=== PATIENT | female | born 1945 | race Two or more races ===

== ENCOUNTER 2021-07-25 16:58 | Inpatient (IN) | payer MEDICAID, OTHER, SELFPAY ==
[~2021-07-25] VITALS: Ht 142.2 cm; Wt 75.1 kg
[2021-07-25 22:51] LABS: Basophils # (auto) 0 10 ^3/uL (0-0.2); Basophils % (auto) 0.2 % (0.0-2.0); Eosinophils # (auto) 0 10 ^3/uL (0-0.8); Hematocrit 42.6 % (36.0-46.0); Hemoglobin 14.2 g/dL (12.2-16.2); Lymphocytes # (auto) 1.5 10 ^3/uL (0.4-5.4); Lymphocytes % (auto) 26.8 % (10.0-50.0); Mean Corpuscular Hemoglobin 29.9 pg (28.0-32.0); Mean Corpuscular Hgb Conc. 33.3 g/dL (32.0-36.0); Mean Corpuscular Volume 89.8 fL (80.0-100.0); Monocytes # (auto) 0.6 10 ^3/uL (0-1.3); Monocytes % (auto) 10.6 % (0.0-12.0); Neutrophils # (auto) 3.4 10 ^3/uL (1.6-8.6); Neutrophils % (auto) 62.4 % (37.0-80.0); Nucleated Red Blood Cells % 0.1 %; Red Blood Cells 4.75 10^6/uL (4.0-5.20); Red Cell Distribution Width 13.8 % (11.8-14.3); White Blood Cell 5.5 10^3/uL (4.4-10.8)
[2021-07-25 23:10] LABS: Albumin 3.6 g/dL (3.4-5.0); Calcium 8.5 mg/dL (8.5-10.1); Potassium 3.9 mmol/L (3.5-5.1)
[2021-07-25 23:16] LABS: BUN/Creatinine Ratio 22.1; Bilirubin, Total 0.4 mg/dL (0.2-1.0)
[2021-07-26] MEDS ORDERED: DOCUSATE SOD 100 MG CAP PO PRN (02:30)
[2021-07-26] MEDS ORDERED: HYDROcodone-ACET 5/325MG TAB PO PRN (02:30)
[2021-07-26] MEDS ORDERED: MORPHINE SULFATE INJECTION 2 MG/ML SYRG IV PRN (03:00)
[2021-07-26] MEDS ORDERED: NITROGLYCERIN 0.4 MG SL TAB SL PRN (03:00)
[2021-07-26] MEDS: ZINC SULFATE 220mg CAP or TAB PO SCH (10:56)
[2021-07-26] MEDS: FAMOTIDINE (10MG/ML) 2ML VL IV SCH (10:56)
[2021-07-26] MEDS: ASPirin 81 mg TAB PO SCH (10:56)
[2021-07-26] MEDS: ASCORBIC ACID 500 MG TAB PO SCH ×2 (10:57→22:08)
[2021-07-26] MEDS: MULTIPLE VITAMIN TAB PO SCH (10:57)
[2021-07-26 22:00] VITALS: BP 158/75
[2021-07-27] VITALS (7 sets, daily range): BP systolic 90–160; BP diastolic 64–89
[2021-07-27] MEDS ORDERED: ASPI-543 PO (05:01)
[2021-07-27] MEDS ORDERED: HYDR25TA5 PO (05:01)
[2021-07-27 06:08] LABS: Urine Bacteria FEW /hpf (None Seen); Urine Blood Negative /uL (Negative); Urine Mucus FEW (None Seen); Urine Specific Gravity 1.018 (1.001-1.035); Urine WBC 46 /hpf (0 - 5)
[2021-07-27 07:34] LABS: Basophils # (auto) 0 10 ^3/uL (0-0.2); Basophils % (auto) 0.7 % (0.0-2.0); Eosinophils # (auto) 0 10 ^3/uL (0-0.8); Eosinophils % (auto) 0.2 % (0.0-7.0); Hematocrit 40.7 % (36.0-46.0); Lymphocytes # (auto) 0.8 10 ^3/uL (0.4-5.4); Mean Corpuscular Hemoglobin 30.4 pg (28.0-32.0); Mean Corpuscular Hgb Conc. 34.4 g/dL (32.0-36.0); Mean Corpuscular Volume 88.5 fL (80.0-100.0); Monocytes # (auto) 0.3 10 ^3/uL (0-1.3); Monocytes % (auto) 12.8 % (0.0-12.0); Neutrophils # (auto) 1.5 10 ^3/uL (1.6-8.6); Neutrophils % (auto) 55.3 % (37.0-80.0); Nucleated Red Blood Cells % 0.2 %; Red Blood Cells 4.61 10^6/uL (4.0-5.20); Red Cell Distribution Width 13.4 % (11.8-14.3); White Blood Cell 2.6 10^3/uL (4.4-10.8)
[2021-07-27 07:44] LABS: INR 0.95 (0.9-1.15)
[2021-07-27 07:53] LABS: Albumin 3.4 g/dL (3.4-5.0); Calcium 8.3 mg/dL (8.5-10.1); Potassium 3.6 mmol/L (3.5-5.1)
[2021-07-27 08:05] LABS: Bilirubin, Total 0.4 mg/dL (0.2-1.0); CRP High Sensitivity 3.11 mg/dL (< 0.3); Magnesium 2.4 mg/dL (1.6-2.6); Total Protein 6.9 g/dL (6.4-8.2)
[2021-07-27 08:31] LABS: Thyroid Stimulating Hormone 1.23 uIU/mL (0.358-3.74)
[2021-07-27] MEDS: ASPirin 81 mg TAB PO SCH (11:09)
[2021-07-27] MEDS: cefTRIAXone 1GM/50ML D5W 50 ML IV SCH (11:09)
[2021-07-27] MEDS: FAMOTIDINE (10MG/ML) 2ML VL IV SCH (11:09)
[2021-07-27] MEDS: ZINC SULFATE 220mg CAP or TAB PO SCH (11:10)
[2021-07-27] MEDS: MULTIPLE VITAMIN TAB PO SCH (11:10)
[2021-07-27] MEDS: ASCORBIC ACID 500 MG TAB PO SCH ×2 (11:12→23:07)
[2021-07-27] MEDS: IVERMECTIN 3 MG TAB PO SCH (11:12)
[2021-07-27] MEDS: CHOLECALCIFEROL (VITD3) 2,000 UNIT CAP/TAB PO SCH (11:12)
[2021-07-27] MEDS: ACETAMINOPHEN 325 MG TAB PO PRN (19:03)
[2021-07-27] MEDS: ATORVASTATIN 20 MG TAB PO SCH (23:08)
[2021-07-28 05:00] VITALS: BP 126/69
[2021-07-28] MEDS: SODIUM CHLORIDE 0.9% 1,000 ML IV SCH ×2 (09:26→15:20)
[2021-07-28] MEDS: cefTRIAXone 1GM/50ML D5W 50 ML IV SCH (09:26)
[2021-07-28] MEDS: FAMOTIDINE (10MG/ML) 2ML VL IV SCH (09:26)
[2021-07-28] MEDS: MULTIPLE VITAMIN TAB PO SCH (09:27)
[2021-07-28] MEDS: ZINC SULFATE 220mg CAP or TAB PO SCH (09:27)
[2021-07-28] MEDS: ASPirin 81 mg TAB PO SCH (09:27)
[2021-07-28] MEDS: ASCORBIC ACID 500 MG TAB PO SCH ×2 (09:28→21:15)
[2021-07-28] MEDS: CHOLECALCIFEROL (VITD3) 2,000 UNIT CAP/TAB PO SCH (09:28)
[2021-07-28] MEDS: IVERMECTIN 3 MG TAB PO SCH (09:28)
[2021-07-28 10:22] VITALS: BP 154/77
[2021-07-28 13:00] VITALS: BP 148/62
[2021-07-28] MEDS: ONDANSETRON HCL 4 MG/2 ML VIAL IV PRN (13:02)
[2021-07-28 16:56] VITALS: BP 138/76
[2021-07-28] MEDS: ATORVASTATIN 20 MG TAB PO SCH (21:14)
[2021-07-28 22:00] VITALS: BP 136/72
[2021-07-29 05:00] VITALS: BP 146/74
[2021-07-29] MEDS: SODIUM CHLORIDE 0.9% 1,000 ML IV SCH ×2 (06:33→12:26)
[2021-07-29 09:00] VITALS: BP 139/66
[2021-07-29] MEDS: cefTRIAXone 1GM/50ML D5W 50 ML IV SCH (09:06)
[2021-07-29] MEDS: FAMOTIDINE (10MG/ML) 2ML VL IV SCH (09:07)
[2021-07-29] MEDS: MULTIPLE VITAMIN TAB PO SCH (09:08)
[2021-07-29] MEDS: ASPirin 81 mg TAB PO SCH (09:08)
[2021-07-29] MEDS: ASCORBIC ACID 500 MG TAB PO SCH ×2 (09:08→22:26)
[2021-07-29] MEDS: ZINC SULFATE 220mg CAP or TAB PO SCH (09:08)
[2021-07-29] MEDS: IVERMECTIN 3 MG TAB PO SCH (09:08)
[2021-07-29] MEDS: CHOLECALCIFEROL (VITD3) 2,000 UNIT CAP/TAB PO SCH (09:08)
[2021-07-29] MEDS: ACETAMINOPHEN 325 MG TAB PO PRN (09:09)
[2021-07-29 13:00] VITALS: BP_SYST 127; BP_SYST 144; BP_SYST 153; BP_SYST 97; BP_DIAS 53; BP_DIAS 62; BP_DIAS 67; BP_DIAS 76
[2021-07-29 17:00] VITALS: BP 161/69
[2021-07-29 22:00] VITALS: BP 161/85
[2021-07-29] MEDS: ATORVASTATIN 20 MG TAB PO SCH (22:26)
[2021-07-30] MEDS: SODIUM CHLORIDE 0.9% 1,000 ML IV SCH ×2 (01:37→15:55)
[2021-07-30 05:00] VITALS: BP 163/98
[2021-07-30] MEDS: ONDANSETRON HCL 4 MG/2 ML VIAL IV PRN (05:45)
[2021-07-30 08:11] LABS: Basophils # (auto) 0 10 ^3/uL (0-0.2); Basophils % (auto) 1.3 % (0.0-2.0); Eosinophils # (auto) 0 10 ^3/uL (0-0.8); Eosinophils % (auto) 0.6 % (0.0-7.0); Hematocrit 42.3 % (36.0-46.0); Hemoglobin 14.6 g/dL (12.2-16.2); Lymphocytes % (auto) 34.9 % (10.0-50.0); Mean Corpuscular Hemoglobin 30.4 pg (28.0-32.0); Mean Corpuscular Hgb Conc. 34.6 g/dL (32.0-36.0); Mean Corpuscular Volume 87.7 fL (80.0-100.0); Monocytes # (auto) 0.3 10 ^3/uL (0-1.3); Monocytes % (auto) 11.5 % (0.0-12.0); Neutrophils # (auto) 1.4 10 ^3/uL (1.6-8.6); Neutrophils % (auto) 51.7 % (37.0-80.0); Nucleated Red Blood Cells % 0.4 %; Red Blood Cells 4.82 10^6/uL (4.0-5.20); Red Cell Distribution Width 13.3 % (11.8-14.3); White Blood Cell 2.8 10^3/uL (4.4-10.8)
[2021-07-30 08:21] LABS: Potassium 3.5 mmol/L (3.5-5.1)
[2021-07-30 08:43] LABS: CRP High Sensitivity 1.25 mg/dL (< 0.3); Calcium 8.3 mg/dL (8.5-10.1); Magnesium 3.1 mg/dL (1.6-2.6)
[2021-07-30 09:00] VITALS: BP 158/91
[2021-07-30] MEDS: FAMOTIDINE (10MG/ML) 2ML VL IV SCH (09:44)
[2021-07-30] MEDS: ASPirin 81 mg TAB PO SCH (09:44)
[2021-07-30] MEDS: cefTRIAXone 1GM/50ML D5W 50 ML IV SCH (09:44)
[2021-07-30] MEDS: MULTIPLE VITAMIN TAB PO SCH (09:44)
[2021-07-30] MEDS: CHOLECALCIFEROL (VITD3) 2,000 UNIT CAP/TAB PO SCH (09:45)
[2021-07-30] MEDS: ZINC SULFATE 220mg CAP or TAB PO SCH (09:45)
[2021-07-30] MEDS: ASCORBIC ACID 500 MG TAB PO SCH (09:45)
[2021-07-30] MEDS: IVERMECTIN 3 MG TAB PO SCH (09:45)
[2021-07-30] MEDS ORDERED: LISINOPRIL 10 MG TAB PO SCH (10:00)
[2021-07-30] MEDS ORDERED: ZINC220T6 PO (11:52)
[2021-07-30] MEDS ORDERED: ASCO500T11 PO (11:54)
[2021-07-30] MEDS ORDERED: LISI20TA28 PO (11:55)
[2021-07-30] MEDS ORDERED: ATOR20TA PO (11:55)
[2021-07-30] MEDS ORDERED: DOXY-286 PO (11:55)
[2021-07-30] MEDS ORDERED: CHOL20007 PO (11:55)
[2021-07-30 13:00] VITALS: BP_SYST 129; BP_SYST 140; BP_SYST 157; BP_DIAS 74; BP_DIAS 79; BP_DIAS 92
[2021-07-30 14:22] VITALS: BP 159/85
[2021-07-30 16:49] VITALS: BP 134/71
== END 2021-07-30 17:21 | disposition home or self-care (01) | DRG 137 ==
LOC: ER 16:58 → TELE 07-26 03:01 → TELE-EAST 07-26 19:13
PROVIDERS: ADMIT Nurse Practitioner Family; ATTEND Internal Medicine
DX: U07.1 COVID-19 (principal); E55.9 Vitamin D deficiency, unspecified; I95.1 Orthostatic hypotension; E86.0 Dehydration; N39.0 Urinary tract infection, site not specified; E66.9 Obesity, unspecified; I10 Essential (primary) hypertension; R73.03 Prediabetes; E78.5 Hyperlipidemia, unspecified; Z86.16 Personal history of COVID-19; Z90.710 Acquired absence of both cervix and uterus; R73.9 Hyperglycemia, unspecified; Z68.37 Body mass index [BMI] 37.0-37.9, adult
CPT/HCPCS: 36415; 70450; 71045; 71046; 71250; 80048; 80053; 80061; 81001; 82306; 82533; 82728; 83036; 83605; 83615; 83735; 84443; 84484; 85025; 85379; 85610; 86141; 87086; 87426; 93005; 93306; 93886; 96374; G0378; J0696; J2405; J3490